=== PATIENT | female | born 1995 | race Caucasian/White ===

== ENCOUNTER 2020-01-06 14:50 | Outpatient (REF) | payer OTHER, MEDICAID, SELFPAY ==
[2020-01-06 22:06] LABS: TSH (W/Ref FT4) 1.53 uIU/mL (0.36-3.74)
== END 2020-01-06 15:10 ==
LOC: NCHCN 14:50
PROVIDERS: Visit Provider Nurse Practitioner Family
DX: Z86.39 Personal history of other endocrine, nutritional and metabolic disease (principal)
CPT/HCPCS: 84443

== ENCOUNTER 2020-03-13 15:33 | Outpatient (REF) | payer OTHER, MEDICAID, SELFPAY ==
--- NOTE | 2020-03-13 14:00 | PAPFT_PTH ---
PATIENT: Shey Arechiga LOC: [facility] U#:[id number] AGE/SX: 25/F ROOM: RE03/13/[address]: Roxie Redmond : 1995 BED: DIS: 03/13/2020 SPEC #: [id number] RECD: 03/14/20 13:01 STATUS: JENNY REKelly #: [id number] JONELLE: 03/13/20 14:[address]: Roxie Redmond DEPT: [facility] Cytology RECD BY: Azeb Luciano ENTERED: 03/14/20 13:01 SP TYPE: PAPFT OTHR DR: Unknown,Unknown Tissues: 1 - CX/ENDOCX FOR PAP SMEARS Procedures: PAP THIN PREP/[facility] Screening Comments: [id number] (CHLAMYDIA/GC)
[2020-03-15 14:39] LABS: Chlamydia Result Negative (Negative); GC Result Negative (Negative)
== END 2020-03-13 15:53 ==
LOC: NCHCN 15:33
PROVIDERS: Visit Provider Nurse Practitioner Family
DX: Z12.4 Encounter for screening for malignant neoplasm of cervix (principal); Z11.3 Encounter for screening for infections with a predominantly sexual mode of transmission; Z97.5 Presence of (intrauterine) contraceptive device
CPT/HCPCS: 87491; 87591; 88142

== ENCOUNTER 2021-07-04 02:09 | Outpatient (CLI) | payer OTHER, MEDICAID, SELFPAY | END 2021-07-04 02:10 | disposition home or self-care (01) | LOC: LBO 02:10 | PROVIDERS: PCP Nurse Practitioner Family; Visit Provider Nurse Practitioner Family ==

== ENCOUNTER 2022-04-09 01:18 | Outpatient (CLI) | payer MEDICAID, SELFPAY ==
--- NOTE | 2022-04-09 | DI.RAD_ITS ---
Exam(s) XR CHEST 2V PA LATERAL EXAM: XR CHEST 2V PA LATERALz CLINICAL HISTORY: NON CARDIAC CHEST PAIN, R07.89,INT ASTHMA,J45.20 TECHNIQUE: 2D digital imaging was performed. COMPARISON: No exams were available for comparison FINDINGS: HEART: Normal size. Aorta: Not dilated. PULMONARY VASCULATURE: Normal. LUNGS: Clear. PLEURAL SPACE: No pleural effusion or pneumothorax. BONE:Mild scoliosis. IMPRESSION: No acute abnormality. DATA REPOSITORY: RADIATION DOSE DELIVERED:
== END 2022-04-09 01:38 ==
PROVIDERS: PCP Nurse Practitioner Family; Visit Provider Nurse Practitioner Family
DX: R07.89 Other chest pain (principal); J45.20 Mild intermittent asthma, uncomplicated
CPT/HCPCS: 71046

== ENCOUNTER → 2022-12-08 01:56 | Outpatient (CLI) | payer MEDICAID, SELFPAY ==
--- NOTE | 2022-12-08 09:30 | DI.US_ITS ---
Exam(s) US BREAST RT LIMITED US BREAST LT LIMITED MG MAMMO DIAGNOSTIC BI EXAM: MG MAMMO DIAGNOSTIC BI and bilateral U/S breast limited CLINICAL HISTORY: nipple discharge bilaterally,N64.52. TECHNIQUE: Craniocaudal and mediolateral oblique Full Field Digital Mammography views with Computer Aided Diagnosis followed by Tomosynthesis and bilateral breast ultrasound. COMPARISON: This is a baseline examination. FINDINGS: Mammography/Tomosynthesis: Masses/Architectural Distortion: None seen. Microcalcifictions: No suspicious pleomorphic-type are seen. Skin Thickening/Nipple Retraction: None. Bilateral limited breast US: Echotexture: Normal appearance of the glandular tissue. Shadowing: No suspicious foci. Cyst: None. Solid lesions: None seen. Ductal dilation: None. IMPRESSION: 1. No evidence of malignancy is noted. 2. Unless there is more urgent need, follow-up, as per [place] [employer] guidelines. 3. The findings were discussed with the patient on the date of the examination. BI-RADS Category 1 - Negative Breast Density - Category B - Scattered areas of fibroglandular density Breast density Category C or D implies that the patient has dense breast tissue. Dense breast tissue can make it harder to find cancer on a mammogram. Dense breast tissue is also associated with an incr eased risk of breast cancer. This information about the result of the mammogram report was provided to the patient to raise their awareness. Use this report when you speak with the patient about their risks for breast cancer, which includes their family history. At that time, you may recommend additional screening tests (Ultrasoun d or MRI) as these tests may add significant information. A negative radiographic report should not delay biopsy if a dominant or clinically suspicious mass is present. Up to ten percent of cancers are not identified on mammography. A negative report may reinforce clinical impression. Adenosis and dense breasts may obscure an underlying neoplasm. False positive reports average 6 to 10%. Patient will receive a letter notifying them of these results.
== END ==
PROVIDERS: PCP Nurse Practitioner Family; Visit Provider Physician Assistant
DX: N64.52 Nipple discharge (principal); Z12.31 Encounter for screening mammogram for malignant neoplasm of breast
CPT/HCPCS: 76642; 77062; 77066; G0279

== ENCOUNTER → 2022-12-31 00:51 | Outpatient (CLI) | payer MEDICAID, SELFPAY ==
--- NOTE | 2022-12-31 08:00 | DI.US_ITS ---
Exam(s) US HERNIA EXAM: US HERNIA CLINICAL HISTORY: Right lower abd hernia,K46.9. TECHNIQUE: Ultrasound was performed using standard protocol. COMPARISON: No exams were available for comparison FINDINGS: Sonographic assessment utilizing grayscale and color Doppler imaging was performed and targeted to th e area of clinical concern. No sonographic evidence of a right inguinal hernia. No abdominal wall hernia. IMPRESSION: No evidence of a right abdominal wall hernia DATA REPOSITORY:
== END ==
PROVIDERS: PCP Nurse Practitioner Family; Visit Provider Nurse Practitioner Family
DX: K46.9 Unspecified abdominal hernia without obstruction or gangrene (principal)
CPT/HCPCS: 76857

== ENCOUNTER → 2023-01-14 02:12 | Outpatient (CLI) | payer MEDICAID, SELFPAY ==
--- NOTE | 2023-01-14 08:36 | DI.CT_ITS ---
Exam(s) CT ABDOMEN PELVIS W EXAM: CT ABDOMEN PELVIS W CLINICAL HISTORY: K43.9 ? hernia K57.80 DIVERTICULITIS R10.31 RLQ PAIN F17.200 SMOKER. TECHNIQUE: Imaging Protocol: Axial computed tomography images with coronal and sagittal reformatted images were created and reviewed CONTRAST MATERIAL: Intravenous: Omnipaque 350 Contrast volume:100 ml Oral: yes / COMPARISON: No exams were available for comparison FINDINGS: ABDOMEN and PELVIS: Exam is mildly limited by motion. Lung Bases: No acute findings. Liver: Normal density. No measurable mass. Gallbladder and biliary tract: No radiodense calculus or dilation. Pancreas: Normal density. No abnormal calcifications or inflammatory process. No evidence of mass. Spleen: Normal. Kidneys: Normal size, contour and axis. No radiodense stones. No obstructive uropathy. No suspicious masses seen. Adrenal glands: No masses seen. Vasculature: Abdominal aorta non-dilated. Soft tissues: Unremarkable. No evidence of a hernia. Bladder: No gross wall thickening. No calculi.No focal mass. Bowel: Stomach and duodenum filled with food. Motion at the level of the duodenal sweep. No obstruc tion. No bowel wall thickening. No evidence of appendicitis. No evidence of diverticulitis. Peritoneal cavity: No ascites. No focal collection or mesenteric inflammatory response. Bones: Unremarkable for age. Reproductive organs: IUD noted. Posterior fundal fibroid. Ovaries appear normal. Lymph nodes: Unremarkable. IMPRESSION:: Unremarkable CT scan of the abdomen and pelvis. RADIATION DOSE DELIVERED: Total DLP DATA REPOSITORY: All CT scans at this facility are submitted to the National Radiology Data Registry (NRDR) Dose Index Registry (DIR) with the [place] [employer] (ACR). RADIATION OPTIMIZATION: All CT scans at this facility use at least one of these dose optimization te chniques: automated exposure control; mA and/or kV adjustment per patient size (includes targeted exa ms where dose is matched to clinical indication); or iterative reconstruction.
[2023-01-14] MEDS: Barium Sulfate 2% W/V-Creamy Vanilla Smoothie 450 ML BTL 900 ML PO (12:55)
[2023-01-14] MEDS: Omnipaque 350 MG/ML 100 ML BTL IJ (14:56)
[2023-01-14] MEDS: Normal Saline - Diluent 50 ML VIAL IJ (14:57)
== END ==
PROVIDERS: PCP Nurse Practitioner Family; Visit Provider Surgery
DX: F17.210 Nicotine dependence, cigarettes, uncomplicated (principal); K43.9 Ventral hernia without obstruction or gangrene; K57.80 Diverticulitis of intestine, part unspecified, with perforation and abscess without bleeding
CPT/HCPCS: 74177; J3490

== ENCOUNTER 2024-06-06 13:26 | Outpatient (REF) | payer MEDICAID, SELFPAY ==
--- NOTE | 2024-06-06 13:15 | PAPFT_PTH ---
PATIENT: Shey Arechiga LOC: [facility] U#:[id number] AGE/SX: 29/F ROOM: RE06/06/[address]: Reina Callejas NP : 1995 BED: DIS: 06/06/2024 SPEC #: [id number] RECD: 06/06/24 16:49 STATUS: JENNY REQ #: [id number] JONELLE: 06/06/24 13:[address]: Reina Callejas NP DEPT: [facility] Cytology RECD BY: Azeb Luciano ENTERED: 06/06/24 16:50 SP TYPE: PAPFT OTHR DR: Perri Carter NP Tissues: 1 - CX/ENDOCX FOR PAP SMEARS Procedures: PAP THIN PREP/[facility] Screening Comments: [id number] (UNSATISFACTORY FOR EVALUATION)
== END 2024-06-06 13:27 | disposition home or self-care (01) ==
LOC: LBN 13:26
PROVIDERS: PCP Nurse Practitioner Family; Visit Provider Nurse Practitioner Women's Health
DX: Z12.4 Encounter for screening for malignant neoplasm of cervix (principal)
CPT/HCPCS: 88142

== ENCOUNTER 2024-11-22 02:13 | Outpatient (CLI) | payer MEDICAID, SELFPAY ==
--- NOTE | 2024-11-22 07:15 | DI.RAD_ITS ---
Exam(s) XR CHEST 2V PA LATERAL EXAM: XR CHEST 2V PA LATERAL CLINICAL HISTORY: cough, continued,r05.9 TECHNIQUE: 2D digital imaging was performed. Two views. COMPARISON: CR XR CHEST 2V PA LATERAL from 04/09/2022 FINDINGS: HEART: Normal size. Aorta: Not dilated. PULMONARY VASCULATURE: Normal. MEDIASTINUM: Unremarkable. LUNGS: Clear. PLEURAL SPACE: No pleural effusion or pneumothorax. BONE:Unremarkable for age. SOFT TISSUES: Unremarkable. IMPRESSION: No acute abnormality. DATA REPOSITORY: RADIATION DOSE DELIVERED:
== END 2024-11-22 02:33 ==
LOC: DI 02:13
PROVIDERS: PCP Nurse Practitioner Family; Visit Provider Nurse Practitioner Family
DX: R05.9 Cough, unspecified (principal)
CPT/HCPCS: 71046

== ENCOUNTER 2024-12-01 10:50 | Outpatient (REF) | payer MEDICAID, SELFPAY ==
--- NOTE | 2024-12-01 10:45 | PAPFT_PTH ---
PATIENT: Shey Arechiga LOC: [facility] U#:[id number] AGE/SX: 29/F ROOM: RE12/01/[address]: Nica Gibbs MD : 1995 BED: DIS: 12/01/2024 SPEC #: [id number] RECD: 12/01/24 12:41 STATUS: JENNY REKelly #: [id number] JONELLE: 12/01/24 10:[address]: Nica Gibbs DEPT: [facility] Cytology RECD BY: Azeb Luciano ENTERED: 12/01/24 12:41 SP TYPE: PAPFT OTHR DR: Perri Carter, ESSIE Tissues: 1 - CX/ENDOCX FOR PAP SMEARS Procedures: PAP THIN PREP/[facility] Screening HPV DNA PROBE Comments: [id number] (HPV 16 & 18/45)
== END 2024-12-01 10:51 | disposition home or self-care (01) ==
LOC: LBN 10:50
PROVIDERS: PCP Nurse Practitioner Family; Visit Provider Obstetrics & Gynecology
DX: Z12.4 Encounter for screening for malignant neoplasm of cervix (principal)
CPT/HCPCS: 88142; 87624

== ENCOUNTER → 2024-12-29 02:01 | Outpatient (CLI) | payer MEDICAID, SELFPAY ==
--- NOTE | 2024-12-29 06:30 | DI.CT_ITS ---
Exam(s) CT FACIAL W EXAM: CT FACIAL W CLINICAL HISTORY: ? mass seen on dental x-ray,abnl soft tissue of face,r93.89. TECHNIQUE: Imaging Protocol: Axial computed tomography images with coronal and sagittal reformatted images were created and reviewed CONTRAST MATERIAL: Intravenous: Omnipaque 350 Contrast volume:structured data in ml mL COMPARISON: There are no priors for comparison at this time. FINDINGS: Facial Bones: No definite fracture is noted in facial bones. There is a lucency seen around the right most mandibular canine which may represent a periapical cyst/abscess. Sinuses and Mastoids: The paranasal sinuses and mastoid air cells are clear. Globes, extraocular muscles, optic nerves and retrobulbar fat: Normal. Upper aerodigestive tract: Normal. Mandible and bilateral temporomandibular joints: Normal. Soft tissues: No soft tissue mass or cervical adenopathy is identified. Enhancement: No abnormal enhancement. IMPRESSION: 1. Periapical cyst or abscess around the right most mandibular canine. 2. There is no evidence of a soft tissue mass or enhancing lesion. RADIATION DOSE DELIVERED: 217.48mGy.cm Total DLP DATA REPOSITORY: All CT scans at this facility are submitted to the National Radiology Data Registry (NRDR) Dose Index Registry (DIR) with the [employer] (ACR). RADIATION OPTIMIZATION: All CT scans at this facility use at least one of these dose optimization techniques: automated exposure control; mA and/or kV adjustment per patient size (includes targeted exams where dose is matched to clinical indication); or iterative reconstruction.
[2024-12-29] MEDS: Normal Saline Flush 10 ML SYR IVP (09:31)
[2024-12-29] MEDS: Normal Saline - Diluent 50 ML VIAL IJ (09:31)
[2024-12-29] MEDS: Omnipaque 350 MG/ML 500 ML BTL-Imaging package IJ (09:32)
== END ==
LOC: DI 02:01
PROVIDERS: PCP Nurse Practitioner Family; Visit Provider Nurse Practitioner Family
DX: R93.89 Abnormal findings on diagnostic imaging of other specified body structures (principal); K04.7 Periapical abscess without sinus
CPT/HCPCS: 70487